=== PATIENT | female | born 1945 ===

== ENCOUNTER 2024-06-30 05:10 | Day surgery (SDC) | payer OTHER ==
[2024-06-24 14:34] VITALS: BP 135/77
[~2024-06-30 05:10] MED LIST: CARDIZEM30 MG PO; GLIMEPIRIDE4 MG; LEVOXYL25 MCG PO; METFORMIN HCL1000 MG; PROTONIX40 M1 PO
[2024-06-30] MEDS ORDERED: CEFAZOLIN SODIUM 1,000 MG VIAL IV SCH (10:30)
== END 2024-06-30 12:10 | disposition home or self-care (01) ==
LOC: CIR.AMB 05:10
PROVIDERS: ATTEND Surgery Surgery of the Hand
DX: M65.841 Other synovitis and tenosynovitis, right hand (principal)